=== PATIENT | female | born 1985 | race Caucasian/White ===

== ENCOUNTER 2017-07-28 13:25 | Emergency (ER) | payer OTHER ==
[~2017-07-28] VITALS: Ht 157.5 cm; Wt 59.0 kg
[~2017-07-28 13:25] MED LIST: AMOXICILLIN875 M1 PO; CLEOCIN HCL300 M1 PO; HYDROCODON-ACE1 EAC2 PO; IBUPROFEN800 M1 PO; PERCOCET 5-3251 EACH PO
[2017-07-28 13:54] VITALS: BP 143/95
--- NOTE | 2017-07-28 14:26 | ED GI/GU/ABDOMINAL COMPLAINT ---
History of Present Illness General Chief Complaint: General Adult Stated Complaint: PAIN AND BLEEDING AFTER SEX ON Source: patient Exam Limitations: no limitations Vital Signs & Intake/Output Vital Signs & Intake/Output Vital Signs Date Time Temp Pulse Resp B/P B/P Pulse O2 O2 Flow FiO2 Mean Ox Delivery Rate 07/28 1354 98.1 81 18 143/95 98 Room Air Allergies Coded Allergies: No Known Allergies (12/14/16) Reconcile Medications Cephalexin (Keflex) 500 MG CAPSULE 1 CAP PO BID uti Glycerin/Min Oil/Polycarbophil (Replens Vaginal Applicator) 35 GM GEL.W.APPL 1 ROXIE VAG DAILY vaginal irriation Triage Note: RECEIVED 31 YO FEMALE C/O SHE WAS HAVING SEX MONDAY AND SHE STARTED BLEEDING WITH PAIN. SINCE THEN, THERE HAS BEEN BLOOD WHEN WIPING AND INTERMITTENT PAIN. Triage Nurses Notes Reviewed? yes ? n Is pt currently ? No Onset: Gradual Duration: day(s): Timing: recent history Quality/Severity: moderate Location: vaginal HPI: 31yo female presents to ED complaining of vaginal pain during vaginal intercourse on 07/26/17. Patient states that she felt "tearing" sensation during intercourse. Patient states LMP was 1 week ago. During her menstrual cycle she used a new brand of organic tampons. She states that she did feel vaginal discomfort and dryness after using the new tampon brand. Patient complaining of pain since vaginal intercourse 2 days ago, treatment to have intercourse again yesterday however could not due to the pain. Patient also reports mild spotting following intercourse. Pain is worse with direct palpation. She also reports burning sensation to vulva/vaginal area with urination. PAtient is sexually active with her boyfriend, no new sexual partners, they do not use protection. Patient had STI testing which was normal at her [facility]AL LATHER's office 3 months ago. Patient denies changes in vaginal discharge, abdominal pain, fevers, vomiting. (Angelica CHAMPION,Zoe Yu) Past History Travel History Traveled to [place] past 21 day No Medical History Any Pertinent Medical History? 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 No (Zoe Chase) Review of Systems Review of Systems Constitutional: Reports: no symptoms. EENTM: Reports: no symptoms. Respiratory: Reports: no symptoms. Cardiovascular: Reports: no symptoms. GI: Reports: no symptoms. Genitourinary: Reports: see HPI. Musculoskeletal: Reports: no symptoms. Skin: Reports: no symptoms. Neurological/Psychological: Reports: no symptoms. Hematologic/Endocrine: Reports: no symptoms. Immunologic/Allergic: Reports: no symptoms. All Other Systems: Reviewed and Negative (Zoe Chase) Physical Exam Physical Exam General Appearance: well developed/nourished, no apparent distress, alert, awake Head: atraumatic, normal appearance Eyes: Bilateral: normal appearance. Ears, Nose, Throat, Mouth: hearing grossly normal Neck: normal inspection, supple, full range of motion Respiratory: no respiratory distress Gastrointestinal: normal bowel sounds, soft, non-tender, no organomegaly Pelvic: normal external exam, linear superficial abrasion to left vaginal wall with tenderness, <1cm white patch to area, exam limited as patient could not tolerate speculum exam, no active bleeding Back: normal inspection, normal range of motion Extremities: normal range of motion Neurologic/Psych: awake, alert, oriented x 3 Skin: intact, normal color, warm/dry Core Measures ACS in differential dx? No Sepsis Present: No Sepsis Focused Exam Completed? No (Zoe Chase) Progress Differential Diagnosis: ectopic , intrauterine , PID/ cervicitis, UTI/pyelo, vaginal abrasion, vaginal laceration, herpes Plan of Care: Orders Procedure Date/time Status Add-on Test (ER Only) 07/28 1449 Active CULTURE,URINE 07/28 1425 Active TRICHOMONAS 07/28 1425 Active POTASSIUM HYDROXIDE (EMELIA) 07/28 1425 Active GENITAL CULTURE 07/28 1425 Active CHLAMYDIA-GC DNA PROBE 07/28 1425 Active CULTURE,URINE 07/28 1358 Active URINE 07/28 1358 Complete URINALYSIS 07/28 1358 Complete Laboratory Tests 07/28/17 1359: Urine Color YEL, Urine Clarity HAZY H, Urine pH 7.5, Ur Specific [place] 1.015, Urine Protein TRACE H, Urine Ketones NEG, Urine Nitrite POS H, Urine Bilirubin NEG, Urine Urobilinogen 0.2, Ur Leukocyte Esterase LARGE H, Ur Microscopic SEDIMENT EXAMINED, Urine WBC 3-5 H, Ur Epithelial Cells MOD H, Urine Bacteria PACKD H, Urine Hemoglobin NEG, Urine Glucose NEG, Urine Test NEGATIVE Microbiology 07/28 1424 URINE ROUT: Urine Culture - ORD 07/28 142 GENITAL: GC DNA Probe - ORD 07/28 142 GENITAL: Chlamydia DNA Probe (SCOOBY) - ORD 07/28 142 GENITAL: EMELIA Preparation - ORD 07/28 142 GENITAL: Trichomonas Preparation - ORD 07/28 142 GENITAL: Genital Culture - ORD 07/28 1358 URINE ROUT: Urine Culture - RECD BETTING CLERKS exam is limited at patient could not tolerate speculum exam due to her vaginal wall tenderness. There appears to be small superficial abrasion to left vaginal wall. White patch is likely related to this abrasion however herpes or other STI is also possible. Could not obtain cervical swabs as patient could not tolerate further examination. Patient's urinalysis shows possibility of mild UTI. Given her symptoms will treat with antibiotics. Patient has an appointment with her [facility]AL L[facility]ER scheduled for 4 days from now. Patient to begin vaginal lubriation and follow up with BETTING CLERKS. She was informed of the necessity of testing for herpes however her symptoms are more consistent with vaginal abrasion related to dryness/irriation. The patient understands and agrees with the plan of care. Initial ED EKG: none (Angelica CHAMPION,Zoe Yu) Departure Departure Disposition: HOME OR SELF CARE Condition: Stable Clinical Impression Primary Impression: Vaginal abrasion Qualifiers: Encounter type: initial encounter Qualified Code: S30.814A - Abrasion of vagina and vulva, initial encounter Secondary Impressions: UTI (urinary tract infection) Qualifiers: Urinary tract infection type: acute cystitis Hematuria presence: without hematuria Qualified Code: N30.00 - Acute cystitis without hematuria Referrals: Patient Has No Primary Care Dr (PCP/Family) Additional Instructions: Take Keflex antibiotics for possible UTI. Begin Replens lubrication, uses daily until you see [facility]. It is recommended to follow-up with [facility] as scheduled for further testing, possible speculum exam, possible herpes testing, possible STI swabs. Return if she has worsening symptoms or other concerns. Please note that there might be incidental findings in your evaluation that are unrelated to the current emergency department visit. Please notify your primary care doctor about this emergency department visit in order to obtain and review all of the testing performed so that these incidental findings can be monitored as needed. If you had an x-ray performed, please understand that some fractures may not be seen on the initial set of x-rays. If your symptoms persist you might need a repeat set of x-rays to check for such a fracture. If you had a laceration evaluated, please understand that foreign bodies such as glass or wood may not be visible to the naked eye or on plain x-rays. If the wound becomes red, swollen, increasingly more painful or if there is any drainage from the wound, please have it reevaluated by a physician for the possibility of a retained foreign body. If you're unable to follow up as outlined in the discharge instructions please return to the emergency department. Thank you for choosing the [facility] Emergency Department for your care. It was a pleasure to serve you today. Departure Forms: Customer Survey General Discharge Information Prescriptions: Current Visit Scripts Cephalexin (Keflex) 1 CAP PO BID #14 CAP Glycerin/Min Oil/Polycarbophil (Replens Vaginal Applicator) 1 ROXIE VAG DAILY #10 UNIT (Angelica CHAMPION,Zoe Yu) PA/REPATCHER Co-Sign Statement Statement: ED Attending supervision documentation- [] I saw and evaluated the patient. I have also reviewed all the pertinent lab results and diagnostic results. I agree with the findings and the plan of care as documented in the PA's/REPATCHER's documentation. [X] I have reviewed the ED Record and agree with the PA's/REPATCHER's documentation. [] Additions or exceptions (if any) to the PAs/REPATCHER's note and plan are summarized below: [] (Carrie العراقي,Don Elias)
[2017-07-28] MEDS ORDERED: REPLENS VAGINAL35 GM VAG (14:56)
[2017-07-28] MEDS ORDERED: KEFLEX500 M1 PO (14:56)
== END 2017-07-28 15:31 ==
LOC: ERH 13:25
DX: S30.814A Abrasion of vagina and vulva, initial encounter (principal); N39.0 Urinary tract infection, site not specified; X58.XXXA Exposure to other specified factors, initial encounter; Y93.89 Activity, other specified; Y92.9 Unspecified place or not applicable
CPT/HCPCS: 87070; 81001; 81025; 87086; 87491; 87591

== ENCOUNTER 2017-09-17 14:21 | Emergency (ER) | payer OTHER ==
[~2017-09-17] VITALS: Ht 157.5 cm; Wt 63.5 kg
[~2017-09-17 14:21] MED LIST changes: +KEFLEX500 M1 PO; +REPLENS VAGINAL35 GM VAG
[2017-09-17 14:24] VITALS: BP 148/81
== END 2017-09-17 16:01 | disposition admitted as inpatient to this hospital (09) ==
LOC: ERH 14:21
DX: R10.31 Right lower quadrant pain (principal)